=== PATIENT | female | born 1990 | race Caucasian/White ===

== ENCOUNTER 2019-11-21 17:46 | Outpatient (CLI) | payer OTHER, SELFPAY ==
--- NOTE | ~2019-11-21 | XR_ITS ---
EXAMINATION: XR lumbar spine 2-3V DATE: 11/21/2019 18:10 INDICATION: Right leg numbness and tingling. TECHNIQUE: 3 views of lumbar spine were obtained. COMPARISON: Lumbar spine radiographs 07/31/2013 FINDINGS: Bone alignment is normal. Vertebral body heights and intervertebral disc heights are normal . The facet joints are normal. IMPRESSION: 1. Normal lumbar spine. Reviewed, dictated and finalized at location A. IMPRESSION: 1. Normal lumbar spine.
== END 2019-11-21 17:47 | disposition home or self-care (01) ==
LOC: CHSIMG 17:49
PROVIDERS: PCP Family Medicine; Visit Provider Family Medicine
DX: R20.2 Paresthesia of skin (principal)
CPT/HCPCS: 72100

== ENCOUNTER 2021-04-22 08:09 | Outpatient (RCR) | payer OTHER, SELFPAY ==
[2021-04-22 09:53] VITALS: BP 142/83; PULSE 95; RESP 20; TEMP 36.9; O2SAT 98
[2021-04-22] MEDS: diphenhydrAMINE HCl CAP 25 MG CAPSULE PO (10:01)
[2021-04-22] MEDS: ACETAMINOPHEN 325 MG TABLET 650 MG PO (10:01)
[2021-04-22] MEDS: FAMOTIDINE 20 MG TABLET PO (10:01)
[2021-04-22 10:58] VITALS: BP 133/88
--- NOTE | 2021-04-23 08:45 | PC.NURSE ---
Tried Calling Ms Rodrigues and her voicemail is not available to leave a message.
== END 2021-04-22 17:00 ==
LOC: AMCINF 08:09
PROVIDERS: PCP Family Medicine; Visit Provider Internal Medicine Hematology & Oncology
DX: U07.1 COVID-19 (principal)
CPT/HCPCS: A9270; M0243; Q0244